=== PATIENT | female | born 1970 | race Caucasian/White ===

== ENCOUNTER 2018-09-19 14:50 | Inpatient (IN) ==
[2018-09-19] MEDS ORDERED: NS 1,000 ML IV PRN (15:12)
--- NOTE | 2018-09-19 15:38 | Diag Imaging Result Doc PS360 ---
EXAM: CHEST-2 VIEWS 09/19/2018 HISTORY: cva TECHNIQUE: PA and lateral chest COMMENT: There are calcified nodes in the left hilum. There is no evidence of acute cardiac or pulmonary disease. There are no previous studies available for comparison. IMPRESSION: No evidence of acute disease. Electronically signed by J Luis Phan 09/19/2018 3:36 PM
--- NOTE | 2018-09-19 15:53 | Diag Imaging Result Doc PS360 ---
EXAM: CT HEAD W/O CONTRAST 09/19/2018 HISTORY: r/o cva TECHNIQUE: This exam was performed using automated exposure control, adjustment of mA or kV according to patient size, and/or use of iterative reconstruction technique. COMMENT: There are subcortical white matter lucencies bilaterally. There is cortical encephalomalacia in the right parietal lobe. There is abnormal lucency with some mass effect centered around the anterior limb of the internal capsule and caudate nucleus on the left. There is encephalomalacia in the right caudate nucleus. There is opacification of the posterior right ethmoid air cells. The calvarium is intact. There are no previous studies available for comparison. IMPRESSION: Chronic ischemic changes with possible subacute infarction in the basal ganglia and internal capsule region on the left. The findings were discussed with Armaan Segovia MD at 09/19/2018 3:51 PM. Electronically signed by J Luis Phan 09/19/2018 3:51 PM
[2018-09-19 16:33] LABS: BASO# 0.04 X1000 (0.0-0.2); BASO% 0.3 % (0.0-0.8); EOS# 0.24 X1000 (0.0-0.7); HEMATOCRIT 43.8 % (37.0-47.0); HEMOGLOBIN 15.2 g/dL (12.0-16.0); IMM GRAN# 0.02 X1000 (0.0-0.04); IMM GRAN% 0.2 % (0.0-0.5); LYMPH# 2.01 X1000 (1.2-3.4); LYMPH% 17.2 % (20.5-51.1); MCH 31.8 PG (27-31); MCHC 34.7 g/dL (33-37); MCV 91.6 FL (81-99); MONO# 0.82 X1000 (0.11-0.59); MPV 10.1 FL (7.4-10.4); NEUT# 8.58 X1000 (1.4-6.5); NEUT% 73.3 % (42.2-75.2); PLT 251 X1000 (130-400); RBC 4.78 XMIL (4.2-5.4); RDW 13.2 % (11.5-14.5); WBC 11.71 X1000 (4.8-10.8)
[2018-09-19 16:58] LABS: INR 0.91; PROTIME 12.7 Seconds (11.0-16.0)
[2018-09-19 16:59] LABS: PTT 23.7 Seconds (22.3-41.8)
[2018-09-19 17:02] LABS: AGAP 13; ALBUMIN 4.7 g/dL (3.5-5.0); ALKALINE PHOSPHATASE 96 U/L (32-104); BUN 9 mg/dL (8-22); CALCIUM 10.2 mg/dL (8.8-10.2); CHLORIDE 103 mmol/L (98-107); COSMO 281; CREATININE 0.7 mg/dL (0.5-0.9); ESTIMATED GFR > 60; GLUCOSE 116 mg/dL (70-104); GOT 16 U/L (10-30); GPT 11 U/L (10-36); POTASSIUM 4.3 mmol/L (3.5-5.1); SODIUM 141 mmol/L (136-145); TCO2 25 mmol/L (25-35); TOTAL PROTEIN 7.2 g/dL (6.3-8.3)
--- NOTE | 2018-09-19 18:17 | PROVIDER DOCUMENTATION ---
This chart was entered by Karla Schneider Scribe, acting as scribe for Armaan Segovia MD. HPI-Neurological Disorder - General Chief Complaint: Altered Mental Status Stated Complaint: STROKE SX Time Seen by Provider: 09/19/18 16:08 Source: patient, family Allergies/Adverse Reactions: Patient Allergies Allergy/AdvReac Type Severity Reaction Status Date / Time No Known Allergies Allergy Verified 09/04/16 07:37 Home Medications: Home Medication List Medication Instructions Recorded Confirmed Last Taken Type NK [No Home Medications] 09/19/18 09/19/18 Unknown History - History of Present Illness-Neuro Nature of Presenting Problem: 48 year old female presents to the ER with AMS and right sided weakness with unknown start time. Last known normal time was 2 days ago when her left for work. states she began slurring her words and not making sense when talking yesterday afternoon. Pt has right side facial droop and right sided arm weakness. Onset/Duration: reports: unsure Timing: reports: still present Context: reports: none Character of Altered Mental Status: reports: confused, trouble concentrating Character of Deficits: reports: new weakness, impaired speech New weakness or altered sensation location:: reports: right facial Cognitive Baseline: alert but confused Gait Baseline: walks without assistance Associated Symptoms: reports: dizziness, weakness Review of Systems - Adult - REVIEW OF SYSTEMS - ADULT Constitutional: denies: chills, fever Respiratory: denies: cough, shortness of breath, wheezing Neurological: reports: dizziness/vertigo, slurred speech. denies: headache/migraines Past History - Adult - PAST MEDICAL HISTORY-ADULT Review of Records: reports: Nursing Assessment Review, Medications Reviewed Psychiatric: reports: anxiety - IMMUNIZATION STATUS Childhood Immunizations: See Nurse Assessment Flu Vaccine: See Nurse Assessment - SOCIAL HISTORY Smoking: cigarettes Provider spent 3-5 mins advising pt. on dangers of tobacco.: Discussed manners to quit use, and f/u contacts for add'l counseling. 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8 MCV 91.6 MCH 31.8 H MCHC 34.7 RDW Std Deviation 13.2 Plt Count 251 MPV 10.1 Immature Gran % (Auto) 0.2 Neut % (Auto) 73.3 Lymph % (Auto) 17.2 L [place] % (Auto) 7.0 Eos % (Auto) 2.0 Baso % (Auto) 0.3 Immature Gran # (Auto) 0.02 Neut # (Auto) 8.58 H Lymph # (Auto) 2.01 [place] # (Auto) 0.82 H Eos # (Auto) 0.24 Baso # (Auto) 0.04 PT INR PTT (Actin FS) Sodium 141 Potassium 4.3 Chloride 103 Carbon Dioxide 25 Anion Gap 13 BUN 9 Creatinine 0.7 Estimated GFR/1.73 m2 > 60 BUN/Creatinine Ratio 13 Glucose 116 H Calculated Osmolality 281 Calcium 10.2 Total Bilirubin 0.20 AST 16 ALT 11 Alkaline Phosphatase 96 Troponin T < 0.010 Total Protein 7.2 Albumin 4.7 Globulin 3.0 Albumin/Globulin Ratio 2.0 09/19/18 16:25 WBC RBC Hgb Hct MCV MCH MCHC RDW Std Deviation Plt Count MPV Immature Gran % (Auto) Neut % (Auto) Lymph % (Auto) [place] % (Auto) Eos % (Auto) Baso % (Auto) Immature Gran # (Auto) Neut # (Auto) Lymph # (Auto) [place] # (Auto) Eos # (Auto) Baso # (Auto) PT 12.7 INR 0.91 PTT (Actin FS) 23.7 Sodium Potassium Chloride Carbon Dioxide Anion Gap BUN Creatinine Estimated GFR/1.73 m2 BUN/Creatinine Ratio Glucose Calculated Osmolality Calcium Total Bilirubin AST ALT Alkaline Phosphatase Troponin T Total Protein Albumin Globulin Albumin/Globulin Ratio Orders Category Date Time Status Cardiac Monitoring DIRECTED Care 09/19/18 15:12 Active Finger Stick Blood Sugar (ED) DIRECTED Care 09/19/18 15:12 Active Oxygen Therapy- ED Nursing DIRECTED Care 09/19/18 15:12 Active Saline Loc NOW Care 09/19/18 15:12 Active CHEST-2 VIEWS [RAD] Stat Exams 09/19/18 15:[address] HEAD W/O CONTRAST [CT] Stat Exams 09/19/18 15:12 Completed CBC WITH ELECTRONIC DIFF [HEME] Stat Lab 09/19/18 16:25 Completed COMPREHENSIVE METABOLIC PANEL [CHEM] Stat Lab 09/19/18 16:25 Completed PROTIME WITH INR [COAG] Stat Lab 09/19/18 16:25 Completed PTT [COAG] Stat Lab 09/19/18 16:25 Completed TROPONIN T Stat Lab 09/19/18 16:[address] W/POSS RFLX CULT [URINALYSIS] Stat Lab 09/19/18 15:12 Uncollected URINE DRUG SCREEN PL Stat Lab 09/19/18 15:12 Uncollected 0.9% Sodium Chloride Inj [Ns] 1,000 ml Med 09/19/18 15:12 Active IV Wide Open mls/hr EKG [EKG] Stat Ther 09/19/18 15:12 Ordered Transfer/Admit Order [TRANSFER] Routine Transfer 09/19/18 18:12 Ordered Result Diagrams: 09/19/18 16:25 09/19/18 16:25 - EKG 1 Time of EKG reading by physician:: 17:08 EKG Read and Signed by:: Armaan Segovia EKG Interpretation (*Must complete 3 of following elements*): Normal Rate: 74 Rhythm: normal sinus rhythm Smoaks: normal QRS: normal - XRAY 1 XRAY Study: Chest Impression: Normal, See EMR Report (EXAM: CHEST-2 VIEWS 09/19/2018 HISTORY: cva TECHNIQUE: PA and lateral chest COMMENT: There are calcified nodes in the left hilum. There is no evidence of acute cardiac or pulmonary disease. There are no previous studies available for comparison. IMPRESSION: No evidence of acute disease) XRAY Interpretation: per radiologist - CT/MRI 1 CT Study: Head Impression: Abnormal, See EMR Report (EXAM: CT HEAD W/O CONTRAST 09/19/2018 HISTORY: r/o cva TECHNIQUE: This exam was performed using automated exposure control, adjustment of mA or kV according to patient size, and/or use of iterative reconstruction technique. COMMENT: There are subcortical white matter lucencies bilaterally. There is cortical encephalomalacia in the right parietal lobe. There is abnormal lucency with some mass effect centered around the anterior limb of the internal capsule and caudate nucleus on the left. There is encephalomalacia in the right caudate nucleus. There is opacification of the posterior right ethmoid air cells. The calvarium is intact. There are no previous studies available for comparison. IMPRESSION: Chronic ischemic changes with possible subacute infarction in the basal ganglia and internal capsule region on the left. The findings were discussed with Armaan Segovia MD at 09/19/2018 3:51 PM.) CT Results: per radiologist Departure - Departure Date of Disposition Decision: 09/19/18 Time of Disposition Decision: 18:03 DIAGNOSIS: CVA (cerebral vascular accident) Disposition: ADMITTED INPATIENT 09 Certified Medical Emergency: Emergent Condition: Stable Referrals and Follow-Ups: None,PCP [Primary Care Provider] - - Critical Care Note This patient required my direct & personal management of CC.: Yes Total Time (mins): 30 Critical Care Statement: This patient required my direct personal management to treat or rule out processes, the absence of which, could potentiallly result in sudden, clinically significant life or limb threatening deterioration. Attestation - Physician/ MACK Attestation Patient care was provided by Advanced Practice Provider:: No The physician spent face to face time with patient:: Yes Advanced Practice Provider documentation review:: Supervising physician onsite and consulted in the evaluation and care of this patient. The physician did have a face to face encounter with the patient. - NIH Stroke Scale Level of Consciousness: 0-Alert Best Gaze (horizontal eye movement): 0-Normal Visual (use finger movement, counting or visual threat): 0-No Visual Loss Facial Palsy (show teeth or raise eyebrows & close eyes tght: 1-Minor Paralysis Motor Function-left arm: 0-Normal Motor Function-right arm: 0-Normal Motor Function-left le-Normal Motor Function-right le-Normal Limb Ataxia([id number], or heel to marks): 0-No Ataxia Best Language(name item/read sentence.Ex-Down to Earth): 1-Mild to Moderate Aphasia Dysarthria(Pt read words or say words Ex.Mama,Tip-Top,Thanks: 1-Mild-Mod Slurring Words Extinction and Inattention: 0-Normal This chart was documented by the indicated scribe, (Karla Schneider, Scribe) and accurately reflects the services I performed and decisions made by me, Armaan Segovia MD, as attested by the provider's signature.
--- NOTE | 2018-09-19 18:34 | EKG Report ---
Test Performed on : 09/19/2018 4:33:48 PM Test Reason : possible cva Blood Pressure : / mmHG Vent. Rate : 074 BPM Atrial Rate : 074 BPM P-R Int : 158 ms QRS Dur : 078 ms QT Int : 394 ms P-R-T Axes : 053 061 058 degrees QTc Int : 437 ms Normal sinus rhythm. Normal ECG No previous ECGs available Unconfirmed Result
[2018-09-19] MEDS ORDERED: NS 1,000 ML IV SCH (18:45)
[2018-09-19] MEDS ORDERED: ASPIRIN PR ONE (18:45)
[2018-09-19] MEDS ORDERED: SODIUM CHLORIDE 0.9% INJ SCH (18:45)
--- NOTE | 2018-09-19 18:57 | HISTORY AND PHYSICAL ---
ADDENDUM: Patient seen and examined by myself. Full note dictated and discussed with nurse practitioner. Patient presented to the ER with confusion, disorientation. The notes that he had seen her last night and she seems confused a little bit. He then went to bed and went to work this morning. Upon getting home tonight she was gently confused, speech was soft. She had some drooping on her face and therefore he came to the ER. CT shows subacute infarct, no mass effect. On exam she does talk at times and sometimes just simply stares at you instead of answering a question. We are going to admit her to the hospital, transfer her to [facility], check an MRI, MRA in the a.m. as well as carotid Doppler, will ask Neurology to see her due to her age, will allow permissive hypertension. Discussed with the the importance of her stopping smoking. cc: Brock Infante MD
[2018-09-19] MEDS ORDERED: M.V.I.-12 10 ML, FOLIC ACID 1 MG, MAGNESIUM SULFATE 1 GM, THIAMINE 100 MG in NS 1,000 ML IV SCH (19:00)
[2018-09-19] MEDS ORDERED: PROTONIX IV SCH (19:00)
--- NOTE | 2018-09-19 19:06 | HISTORY AND PHYSICAL ---
CHIEF COMPLAINT: Right-sided weakness and right-sided facial droop. HISTORY OF PRESENT ILLNESS: This is a 48-year-old female with a history of cervical cancer, a CVA in 1993, and tobacco use and abuse as well as alcohol use daily. She presents after being found by her altered. The patient has difficulty with words, and most of the history is from the and the ER chart. The stated that he went to work 2 days ago in the morning, and she was at her normal. He did notice that she started slurring her words yesterday afternoon and did not make much sense when she talked. Then today, there is a right-sided facial droop with right arm weakness. He did state that she was drinking her coffee today, and he noted that she had some trouble swallowing and she had to hold her coffee cup with 2 hands. PAST MEDICAL HISTORY: Cervical cancer. CVA in 1993. PAST SURGICAL HISTORY: Hysterectomy. SOCIAL HISTORY: She smokes about a pack and half to 2 packs of cigarettes a day. She drinks daily. ALLERGIES: No known drug allergies. HOME MEDICATIONS: The reports an estrogen supplement. REVIEW OF SYSTEMS: Unable to obtain from the patient. The states that she has voiced no complaints. He has not noted that she has been ill until she started having these symptoms yesterday afternoon. PHYSICAL EXAMINATION: GENERAL: This is a 48-year-old female who is lying in the bed in the ER in no distress. VITAL SIGNS: Blood pressure is 132/80 with heart rate of 73, respirations are 16, temperature is 98.2 degrees with room air saturations 96%. EYES: Pupils are equal, round, and react to light. EOMs are intact. Sclerae are anicteric. HEENT: Head is normocephalic, atraumatic. Mucous membranes are moist. NECK: Supple with trachea midline. CARDIOVASCULAR: Regular rate and rhythm. S1 and S2 appreciated. She has no lower extremity edema. Peripheral pulses are palpable x4 extremities. Calves are nontender. PULMONARY: Breath sounds are clear with no increased work of breathing noted GASTROINTESTINAL: Abdomen is soft, nontender, nondistended. Bowel sounds in all 4 quadrants. NEUROLOGIC: She is alert. She is slow to respond. She does follow some commands. Forehead is spared. She does have a right corner of her mouth facial droop, flat. She has no nasal flaring to the right naris. Shoulder shrug to the right is less than the left. She has a right plantar drift. Muscle strength and shellfish sorter to the left arm are 5/5. To the right they are about 2/5 to 3/5. The stated that she had trouble swallowing. She is handling her secretions while in the ER. Muscle strength to the left lower extremity is 5/5 and to the right is about 3/5. Finger-to- nose on the left is 3/3. She did not attempt on the right. She just stated no. Speech is clear some words and slurred at times. She does have trouble finding words. LABORATORY DATA: WBC is 11.7 with hemoglobin 15, hematocrit 43.8, platelets of 251,000. Sodium 141, potassium 4.3, BUN 9, creatinine 0.7 with a glucose of 116. CT of the head revealed chronic ischemic changes with possible subacute infarction in the basal ganglia and internal capsule region on the left. Chest x-ray revealed no evidence of acute disease. EKG revealed sinus rhythm with a rate of 74. ASSESSMENT AND PLAN: 1. Cerebrovascular accident. 2. Tobacco use and abuse. 3. Daily alcohol use and abuse. PLAN: The patient will be transferred to [facility]. She will be admitted and placed on telemetry with neuro checks per stroke protocol. We will obtain a urine drug screen as well as urinalysis. Get a stat blood alcohol. She was given a liter of fluid. We will continue with IV hydration, giving saline at 125 an hour. We will give Protonix for PPI. We will allow for permissive hypertension, treating blood pressure with hydralazine for systolic pressure greater than 180. We will given aspirin. We will consult Physical Therapy. Further treatments pending hospital course. Plan was discussed with Dr. Fortino Infante. Dictated by NAZANIN Kelley for Brock Infante MD cc: NAZANIN Kelley MD Alexis R. Penot, MD
[2018-09-19] MEDS ORDERED: APRESOLINE IV PRN (20:03)
[2018-09-19] MEDS ORDERED: NEXIUM IV SCH (21:15)
[2018-09-19] MEDS: SODIUM CHLORIDE 0.9% INJ SCH (21:33)
[2018-09-19] MEDS: NS 1,000 ML IV SCH (21:33)
[2018-09-20] MEDS: NS 1,000 ML IV SCH ×2 (05:58→18:48)
[2018-09-20] MEDS: M.V.I.-12 10 ML, FOLIC ACID 1 MG, MAGNESIUM SULFATE 1 GM, THIAMINE 100 MG in NS 1,000 ML IV SCH (09:15)
--- NOTE | 2018-09-20 09:25 | Diag Imaging Result Doc PS360 ---
MRI BRAIN W/WO CONTRAST - 09/20/2018 INDICATION: cva COMPARISON: Head CT 09/19/2018 FINDINGS: There is widespread restricted diffusion of the left cerebral hemisphere. The most heavily involved area is the caudate head, internal capsule, and although striate on the left side. There is also multifocal patchy hyperintense signal of the cortex mainly involving the parietal lobe, but also to a minimal extent at the frontal and temporal lobes. There is also significant involvement in the posterior parietal lobe deep white matter. No mass effect or intracranial hemorrhage. There is otherwise stable extensive chronic microvascular disease of the cerebral white matter, and stable old strokes namely in the right parietal lobe. IMPRESSION: Extensive acute strokes in the left basal ganglia and left cerebral hemisphere. These involve the thalamostriate and middle cerebral artery territories respectively. Electronically signed by Anthony Sauceda 09/20/2018 9:23 AM
--- NOTE | 2018-09-20 09:33 | Diag Imaging Result Doc PS360 ---
MRA BRAIN W/CONTRAST - 09/20/2018 INDICATION: cva TECHNIQUE: Noncontrast [id number] technique was used COMPARISON: None FINDINGS: There is moderate patient motion artifact. There is artifactual nonvisualization of most of the right middle cerebral artery for some reason. On the left side, the intracranial internal carotid artery is patent. The anterior cerebral artery is patent. There is moderate irregularity with narrowing and stenosis of the proximal M1 segment of the left middle cerebral artery. There is about 60% narrowing here. The posterior cerebral arteries are patent. The vertebral and basilar arteries are patent. IMPRESSION: Moderate irregularity and narrowing of the proximal M1 segment of the left middle cerebral artery. Electronically signed by Anthony Sauceda 09/20/2018 9:30 AM
[2018-09-20] MEDS ORDERED: ATIVAN IV PRN (09:54)
[2018-09-20] MEDS: ASPIRIN EC PO SCH (11:20)
[2018-09-20] MEDS ORDERED: NICODERM PATCH TD PRN (15:16)
--- NOTE | 2018-09-20 15:58 | ECHO REPORT ---
ORDER DATE: 09/20/2018 INTERPRETING PHYSICIAN: Dr. Ray Hale. REQUESTING PHYSICIAN: Mariano White MD. CLINICAL INDICATIONS: A 48-year-old female with a stroke. M-MODE MEASUREMENTS: Right ventricle: cm. Left ventricle end diastole: 4.6 cm. Left ventricle end systole: 2.2 cm. Posterior wall: 0.8 cm. Interventricular septum: 0.8 cm. Left atrium: 3.0 cm. Aortic root: 3.5 cm. SUMMARY OF 2-DIMENSIONAL IMAGIN. The left ventricle is normal in size and function. Systolic function is normal. Ejection fraction estimated at 77%. No wall motion abnormality is noted. 2. Ventricular volumes are normal. 3. The aortic valve is normal. Color flow mapping is unremarkable. 4. The mitral valve is normal. Color flow mapping indicates very mild degree of mitral regurgitation. 5. Pulse wave Doppler of mitral inflow shows normal E/A ratio. 6. Tissue Doppler of septal and lateral mitral annulus averages 12 cm per second. 7. Pulmonary venous flow is normal. 8. There is normal diastolic function. 9. Pulmonary valve is normal. Color flow mapping is unremarkable. 10.Tricuspid valve is normal. Color flow mapping indicates mild tricuspid regurgitation. 11.Inferior vena cava is not dilated. 12.Pulmonary pressure is estimated at 27 mmHg. 13.There is no pericardial effusion, mass or thrombus. cc: MD Mariano Mota MD
--- NOTE | 2018-09-20 16:14 | PROGRESS NOTE ---
DATE: 09/20/2018 SUBJECTIVE: Patient has no major complaints. OBJECTIVE: Blood pressure is 150/78, heart rate 65, respiratory 15, temperature 99.1 degrees.Cardiovascular: Regular rate and rhythm. Pulmonary: Bilateral breath sounds, clear to auscultation. GI: Soft, nontender, nondistended. Bowel sounds are positive. PROBLEM LIST: 1. Left basal ganglia and cerebral hemisphere stroke. She does have some right-sided weakness but her aphasia is much better. Her weakness is better. We will continue aspirin, Lipitor, permissive hypertension. I have gotten a neurological consult because she is has a fairly extensive stroke and she has a pretty young age. I just want to make sure we are covering all her bases. 2. Hypertension appears to be stable. 3. Alcohol abuse, but no evidence currently of withdrawal. We will continue to monitor. She is on a banana bag. DISPOSITION: Anticipate she is probably going to go home. She is recovering already. Encouraged her about tobacco and alcohol cessation. cc: Mariano White MD
--- NOTE | 2018-09-20 18:19 | CONSULTATION ---
DATE OF CONSULTATION: 09/20/2018 Ms Grant is 48 years old and it looks like she has had a stroke. History from the patient and attentive at the bedside and from review of the hospital admission notes is that she had trouble expressing herself with speech 2 days ago. The next day, yesterday, noticed that she had difficulty using her right side and right face was drooped. She was brought to the hospital, evaluated and admitted. reports she seems to be about the same today as yesterday. In retrospect, reports being told by co-worker that she seemed not herself at work 4 days ago, but we do not have a more precise report. Also, 9 days ago at a libertarian for a family member she seemed more withdrawn than usual. She had not complained of headache. There is no history of head injury. There is reported to be possible prior stroke history when she was in her 20s but we do not have details. She is not able to report anything specific about that now. Risk factors include cigarette smoking. She has not had diagnosed hypertension, diabetes mellitus, dyslipidemia. She was taking no medications regularly. Past history is also remarkable for cervical cancer and there is reported to be history of significant ethanol use. Workup here includes lab showing WBC 11,710. Nothing remarkable on chemistry profile. She has been afebrile. Systolic blood pressures were initially 120s, later 140s-150s. Initial heart rate was 95, later 70s-80s. Brain MRI done with and without contrast shows acute left hemisphere infarction, mostly subcortical, multiple small areas involved. Brain MRA shows narrowing of the left proximal MCA but no occlusion. From discussion with patient and , I believe that she may have had carotid ultrasound and echocardiogram but I do not have those reports now. On exam, Ms. Grant is awake, alert, attentive. She seems appropriate. Speech is slightly dysarthric, but easily understood. She had trouble naming objects and parts of objects. She could not perform tasks requiring right/left distinction or digit distinction. She followed simple written and spoken commands consistently. I did not test her handwriting. She did well with bedside testing of repeating, including pronouns. Head and neck are unremarkable. Visual lambert are full tested grossly by confrontational finger counting. Extraocular movements are full. Facial motility is diminished on the right in an upper motor neuron pattern. She reports diminished pinprick appreciation over the right face inconsistently. Tongue protrudes slightly to the right. Gag is intact. Palate is midline. She can hear. Shoulder shrug is good bilaterally. Strength is normal in the left limbs. I can overcome the right deltoid 4/5, wrist extensor 4+/5, supervisor vendor quality 4+/5, iliopsoas 4/5, anterior tibialis 4+/5. Tone is increased in the right arm. She did rapid alternating movements better with the right hand than the left. She did well with finger-to- nose testing bilaterally. She reports equal pinprick appreciation over the left and right limbs. Her responses on proprioception testing were inconsistent but she generally reported better proprioception in the right great toe than the left. I did not test her gait. IMPRESSION: Right hemiparesis and dysphasia. This is consistent with dominant left hemisphere syndrome. History is consistent with sudden onset a few days ago, but there is also some history suggesting this might have been a staggering incremental event. We need to see the echocardiogram report. In light of her young age, if TTE is unremarkable, I would consider transesophageal echocardiogram. Depending on those reports, would consider checking coagulation labs. I strongly encouraged her to quit smoking cigarettes. At discharge, she may need antihypertensive medicine and at least temporary course with a statin. I do not see lipid profile reported in old records and lipid profile is ordered for tomorrow morning. Would continue aspirin for now. Thanks for asking Neurology to see Ms. Grant. cc: MD EVONNE Fernandez III
[2018-09-20] MEDS: LIPITOR PO SCH (21:03)
[2018-09-20] MEDS: SODIUM CHLORIDE 0.9% INJ SCH (21:04)
[2018-09-21] MEDS: LOVENOX SUBQ SCH (06:30)
[2018-09-21] MEDS: PRILOSEC PO SCH (06:30)
[2018-09-21 06:54] LABS: BASO# 0.06 X1000 (0.0-0.2); BASO% 0.6 % (0.0-0.8); EOS# 0.37 X1000 (0.0-0.7); EOS% 3.5 % (0.0-10.0); HEMATOCRIT 44.9 % (37.0-47.0); HEMOGLOBIN 14.7 g/dL (12.0-16.0); IMM GRAN# 0.02 X1000 (0.0-0.04); IMM GRAN% 0.2 % (0.0-0.5); LYMPH# 2.39 X1000 (1.2-3.4); LYMPH% 22.5 % (20.5-51.1); MCH 31.4 PG (27-31); MCHC 32.7 g/dL (33-37); MCV 95.9 FL (81-99); MONO% 6.6 % (1.7-9.3); MPV 10.4 FL (7.4-10.4); NEUT% 66.6 % (42.2-75.2); PLT 208 X1000 (130-400); RBC 4.68 XMIL (4.2-5.4); RDW 13.3 % (11.5-14.5); WBC 10.64 X1000 (4.8-10.8)
[2018-09-21 07:24] LABS: AGAP 15; BUN 6 mg/dL (8-22); CALCIUM 8.8 mg/dL (8.8-10.2); CHLORIDE 110 mmol/L (98-107); CHOLESTEROL 162 mg/dL (0-200); COSMO 279; CREATININE 0.6 mg/dL (0.5-0.9); ESTIMATED GFR > 60; GLUCOSE 95 mg/dL (70-104); HDL 67 mg/dL (45-65); LDL 80 mg/dL; POTASSIUM 4.1 mmol/L (3.5-5.1); SODIUM 141 mmol/L (136-145); TCO2 16 mmol/L (25-35); TRIGLYCERIDES 77 mg/dL (35-135); VLDL 15 mg/dL
--- NOTE | 2018-09-21 11:05 | Carotid Study ---
DATE: 09/20/2018 REQUESTING PHYSICIAN: Dr. White. HEADING SAW OPERATOR: Rach. INDICATIONS: TIA. EQUIPMENT: GE Vivid E9 ultrasound system with a 9 L-D transducer. FINDINGS: Full diagram of ultrasound images can be seen in patient's medical record and scanned into the chart. The peak systolic velocity noted in internal system is 117 on the right and 116 on the left. The left calculated internal common ratio on the right 1.48 and left 1.38. Calculated stenosis on the right is likely 40% to 59%, likely closer to the 40%. There appears to be atherosclerosis which is producing a moderate stenosis noted bilaterally. Both vertebral arteries were antegrade flow. INTERPRETATION: Stenosis of 40% to 59% noted bilaterally, closer to the 40% range. The patient's vessels are tortuous per the traffic technician's note, which makes interpretation difficult. Given these findings, I would recommend continue monitoring. cc: MD Mariano Fajardo MD
--- NOTE | 2018-09-21 13:38 | PROGRESS NOTE ---
DATE: 09/21/2018 Ms. Grant reports she is feeling better, finding her words a little bit better. On bedside testing, she still has trouble with right/left distinction and with digit distinction. She could not name the President. She did name the hospital. She found her words more consistently and was able to carry on conversation better today than yesterday. Workup includes carotid ultrasound done yesterday showing moderate stenosis and tortuous vessels bilaterally. We reviewed the brain MRI and brain MRA findings. Echocardiogram showed no source of embolus. Systolic blood pressures have ranged 110s-160s in the last 24 hours. She continues afebrile. Lipid profile reported today shows total cholesterol 162, LDL 80, VLDL calculated 15, HDL 67, triglycerides 77. I will order coagulopathy lab profile for workup of stroke in young adult. Would continue aspirin and statin, continue following blood pressure and blood sugar. Also, in light of her young age, could consider elective transesophageal echocardiogram. I encouraged her to quit smoking. Thanks for asking Neurology to see Ms. Grant. cc: MD EVONNE Fernandez III
--- NOTE | 2018-09-21 14:41 | ECHO REPORT ---
ORDER DATE: 09/21/2018 INTERPRETING PHYSICIAN: Dr. Sheldon Quiroga. SUMMARY OF THE 2-DIMENSIONAL IMAGIN. This is a limited 2D echocardiogram to rule out patent foramen ovale. 2. 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 3. Saline contrast study was negative for patent foramen ovale. 4. Please see full echocardiogram dictated earlier. 5. Aortic valve leaflets were trileaflet. 6. Mitral valve was normal. 7. There is no pericardial effusion. cc: MD Ray Acevedo MD
--- NOTE | 2018-09-21 14:45 | CARDIOLOGY CONSULTATION ---
DATE: 09/21/2018 REQUESTING PHYSICIAN: Hospitalist Service. REASON FOR CONSULTATION: Possible need for ZAC. HISTORY: Ms. Grant is a 48-year-old female who presented to the hospital, brought by the family, on September 19 with a complaint of sudden onset of difficulty with her speech. 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 On September 17, she did not go to work. On September 18, Thursday morning, found her sort of slumped in the living room with her head tilted backwards. He did not think much of it and at the end of the day on Thursday evening, September 18, the patient appeared to have a little bit of garbled speech, but she denied having any complaints. On September 19, the patient was evidently unable to communicate and the immediately at that time reacted and thought that she could be having a stroke. They brought her to the emergency room department and they did a head CT that shows chronic ischemic changes with possible subacute infarction in the basal ganglia and internal capsule region on the left. The patient's initial blood pressure at the time of encounter in the ER was 126/85, and the highest pressure recorded since this admission was today September 21, 161/79 at 11:57 in the morning. The patient has not complained of any headache or chest pain. She has received an echocardiogram which I read yesterday and the echocardiogram in my professional and expert opinion is really quite unremarkable. I do not see indication of any chamber dilatation or any valvular disease. A brain MRA was ordered that shows moderate irregularity and narrowing of the proximal M1 segment of the left middle cerebral artery. However, there is artifactual nonvisualization of most of the right middle cerebral artery, making this study less than optimal. In addition, they reported that there is some moderate stenosis of the carotid arteries bilaterally in the range of 40 to 59 percent. The patient at this time is not complaining of any symptoms or discomfort. PAST MEDICAL HISTORY: Her past history is really negative other than on further questioning, family member said that she may have suffered a stroke in 1993. There is a question of cervical cancer and a previous hysterectomy. MEDICATIONS: The patient does not see any doctor on a regular basis and is not taking any medication on regular basis. SOCIAL HISTORY: She has been to her for the past 13 years. She has 3 grownup children. She smokes about a pack of cigarettes a day and she drinks about 6 to 7 beers every day. ALLERGIES: She does not have any reported allergies. FAMILY HISTORY: Really noncontributory. 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 The patient has no complaints that the can relate to me. The patient at this time is aphasic and cannot really communicate well. PHYSICAL EXAMINATION: Vital signs: Blood pressure is 161/79, temperature 98.9 degrees, pulse 63, respirations 15. General: She is awake, alert, oriented, in no distress. HEENT: Unremarkable. Chest: Clear to auscultation and percussion. Heart: Sounds regular and rhythmic. No gallop or murmur. Abdomen: Nontender. Extremities: Showed good pulses. No peripheral edema. Neurological: Follows commands within certain range. She has expressive aphasia. She moves 4 extremities. LABORATORY DATA: Triglycerides 77, cholesterol 162, LDL 80, HDL 67. IMPRESSION: 1. Patient who has suffered a stroke. The etiology of it is unclear. Dr. Traore from Neurology is considering a transesophageal echocardiogram. 2. Tobacco user. 3. Alcohol use. 4. Hypertension. RECOMMENDATION: At this time, I would suggest to do a CT of the cerebral circulation prior to proceeding with ZAC since the brain MRA was suboptimal. I will consider doing the ZAC when the patient is really more able to cooperate. At this time, she is somewhat aphasic and startled by the fact that she does not really fully understand questions and her answers are equivocal due to the expressive aphasia. At any rate, one thing that I may want to do is consider doing a bubble study with agitated saline to make sure that there is no patent foramen ovale. cc: Ray Hale MD
[2018-09-21] MEDS: NS 1,000 ML IV SCH (15:40)
[2018-09-21] MEDS: M.V.I.-12 10 ML, FOLIC ACID 1 MG, MAGNESIUM SULFATE 1 GM, THIAMINE 100 MG in NS 1,000 ML IV SCH (15:40)
--- NOTE | 2018-09-21 15:41 | Diag Imaging Result Doc PS360 ---
CT ANGIOGRAM HEAD/NECK - 09/21/2018 INDICATION: CVA left side Aphasia TECHNIQUE: Axial CT images were obtained after administering intravenous contrast. Three-dimensional angiographic images were generated. COMPARISON: MR angiogram 09/20/2018 FINDINGS: Normal aortic arch and great vessel origins. Soft tissues are normal. The carotid artery systems are patent bilaterally. There is no aneurysm or stenosis. There is no substantial atherosclerotic plaque. The vertebral arteries are patent. The left vertebral artery is dominant. Again, no significant plaque buildup. The right intracranial internal carotid artery demonstrates some minimal calcified plaque at the cavernous sinus. There is mild stenosis here, about 30% narrowing. The supraclinoid internal carotid artery is patent. As on the MR angiogram, the M1 segment of the right middle cerebral artery is extremely narrow, almost to the point of nonvisualization. This measures about 1 mm. The right anterior cerebral artery is patent. On the left side, there is heavy plaque buildup in the cavernous and supraclinoid internal carotid artery. This causes moderate stenosis of about 50% at the cavernous portion, and severe stenosis of about 70% narrowing at the anterior clinoid process. There is moderate atherosclerotic narrowing of the proximal M1 segment as was seen on the MRA, with about 60% narrowing. This is due to focal plaque buildup. The anterior cerebral artery are patent. The more distal branches of the middle cerebral artery are patent. The vertebral basilar system is patent. No significant plaque buildup. The posterior cerebral arteries are patent. The major cerebellar arteries are patent. IMPRESSION: Confirmation of the MR angiogram. Extremely narrow M1 segment of the right middle cerebral artery. Bilateral intracranial internal carotid artery plaque buildup causing stenosis, worse on the left side. There is also moderate to severe stenosis at the proximal M1 segment of the left middle cerebral artery. This exam was performed using automated exposure control, adjustment of mA or kV according to patient size, and/or use of iterative reconstruction technique Electronically signed by Anthony Sauceda 09/21/2018 3:39 PM
[2018-09-21] MEDS: ASPIRIN EC PO SCH (16:08)
--- NOTE | 2018-09-21 17:45 | PROGRESS NOTE ---
DATE: 09/21/2018 SUBJECTIVE: The patient has no major complaints. OBJECTIVE: Blood pressure 125/84, heart rate of 73, respiratory rate 14, temperature was afebrile at 98 degrees.Cardiovascular: Regular rate and rhythm. Pulmonary: Bilateral breath sounds. Clear to auscultation. Gastrointestinal: Soft, nontender, nondistended. Bowel sounds are positive. LABORATORY DATA: Her white count is 10, hemoglobin and hematocrit 14 and 44, platelets 208,000. PROBLEM LIST: Left basal ganglia and cerebral hemispheric stroke. We will continue aspirin and Lipitor and follow. Clinically she is much improved. She will likely need some outpatient therapy. At this point it is not clear. She uses tobacco and abuses alcohol. She is not particularly dyslipidemic, but it is around the time of an acute event. She does have a narrow M1 segment of the left and right middle cerebral artery, but there is no acute obstruction and I am not sure if any of this is amenable to treatment. In any case, Dr. Traore is recommending to get a ZAC and I have consulted Dr. Hale about that and he is evaluating when the patient is more able to cooperate. I do not know. She cooperated okay this afternoon. I think there is some concern since she had dysphagia of doing that right now, so we just need to make sure she does not have an intra-arterial thrombus I think before she goes home and we will go from there. Continue IV fluids and we have pursued a hypercoagulable workup. The only thing I think I am going to add is we need to add a prothrombin gene mutation and we need to add a Factor V Leiden. I appreciate Dr. Hale's and Dr. Traore's assistance. Hopefully, discharge soon. cc: Mariano White MD
[2018-09-21] MEDS: SODIUM CHLORIDE 0.9% INJ SCH (21:18)
[2018-09-21] MEDS: LIPITOR PO SCH (21:19)
[2018-09-22] MEDS: NS 1,000 ML IV SCH (02:41)
[2018-09-22] MEDS: LOVENOX SUBQ SCH (06:31)
[2018-09-22] MEDS: PRILOSEC PO SCH (06:31)
[2018-09-22 07:16] LABS: BASO# 0.03 X1000 (0.0-0.2); BASO% 0.3 % (0.0-0.8); EOS# 0.29 X1000 (0.0-0.7); HEMATOCRIT 39.6 % (37.0-47.0); HEMOGLOBIN 13.4 g/dL (12.0-16.0); LYMPH% 21.5 % (20.5-51.1); MCH 31.2 PG (27-31); MCHC 33.8 g/dL (33-37); MCV 92.3 FL (81-99); MONO# 0.69 X1000 (0.11-0.59); MONO% 7.1 % (1.7-9.3); MPV 10.7 FL (7.4-10.4); NEUT# 6.67 X1000 (1.4-6.5); NEUT% 68.1 % (42.2-75.2); PLT 204 X1000 (130-400); RBC 4.29 XMIL (4.2-5.4); WBC 9.78 X1000 (4.8-10.8)
[2018-09-22 07:35] LABS: AGAP 12; BUN 5 mg/dL (8-22); CALCIUM 8.2 mg/dL (8.8-10.2); CHLORIDE 110 mmol/L (98-107); COSMO 278; CREATININE 0.5 mg/dL (0.5-0.9); ESTIMATED GFR > 60; GLUCOSE 95 mg/dL (70-104); POTASSIUM 3.6 mmol/L (3.5-5.1); SODIUM 141 mmol/L (136-145); TCO2 19 mmol/L (25-35)
[2018-09-22] MEDS: ASPIRIN EC PO SCH (08:47)
[2018-09-22] MEDS: M.V.I.-12 10 ML, FOLIC ACID 1 MG, MAGNESIUM SULFATE 1 GM, THIAMINE 100 MG in NS 1,000 ML IV SCH (12:11)
[2018-09-22 12:18] VITALS: BP 147/56
--- NOTE | 2018-09-22 12:34 | PROGRESS NOTE ---
DATE: 09/22/2018 Ms. Grant is awake and alert. She did a little bit better with bedside language testing. She was able to come up with proper nouns a little bit better today. She still has great difficulty with commands requiring right/left distinction and digit distinction. Her workup has shown evidence of moderate intracranial stenoses bilaterally. I discussed that with her. I strongly encouraged her to continue off cigarettes and to be aggressive with management of other risk factors. I suggested she become established with a primary clinic. Depending on her clinical course and her desires, we might consider referral to [facility] outpatient stroke clinic for another opinion later, electively, not urgent. We have coagulopathy lab work reports pending now. I do not have any other suggestion. I will be glad to see her again as an outpatient, if needed. cc: Yina Traore III, MD MTDD
--- NOTE | 2018-09-23 05:00 | DISCHARGE SUMMARY ---
ADMISSION DATE: 09/19/2018 DISCHARGE DATE: 09/22/2018 ADMISSION DIAGNOSES: 1. Acute ischemic CVA related to atherosclerosis. 2. Hypertension. 3. History of alcohol dependence. 4. Expressive aphasia. 5. Tobacco abuse. DISCHARGE DIAGNOSES: 1. Acute ischemic CVA related to atherosclerosis. 2. Hypertension. 3. History of alcohol dependence. 4. Expressive aphasia. 5. Tobacco abuse. CONSULTATIONS: 1. Neurology, Dr. Traore. 2. Cardiology, Dr. Hale. HISTORY: This is a 48-year-old female presenting initially to [facility] with aphasia, slurring words, and right-sided facial droop. She was admitted, placed on IV fluids, and transferred to the main hospital for further management. Her MRI showed extensive acute strokes in the left basal ganglia and left cerebral hemisphere. They were in the territories of the middle cerebral artery. Her carotid Doppler showed 40 to 59 percent stenoses, but more in the 40% range. Her echocardiogram was unremarkable. There was no interatrial thrombus. Dr. Traore was consulted just because she had a fairly extensive stroke. This was a dominant left hemisphere stroke. We consulted Cardiology. We did a limited echo which showed no PFO, and did not feel that we required a ZAC at this point. She did answer questions appropriately. She seemed to understand. She had difficulty initiating speech, but she could answer questions. She still had limited word recall. Her CTA showed narrow M1 segment of the right middle and left middle cerebral artery, but there was no acute thrombus, and there was no clear stenosis. I discussed the CTA findings I think with Dr. Rivera. He said that there was some calcification in that middle cerebral artery, and that is most likely where she had, less likely to be an embolic stroke. She continued to improve. Dr. Traore saw the patient and felt that she was improved, and recommended that aggressive management of her other factors and her coagulopathy report was pending. As she improved, she was ambulating without difficulty. She was felt stable for discharge. She was discharged on aspirin 81 daily and Lipitor 40 daily. She will need blood pressure management long- term to be set up with PCP. We will refer her to the free clinic and to Dr. Traore for follow up. She was told to return for any acute neurological change. TIME SPENT: 32 minute discharge. cc: Mariano White MD
== END 2018-09-22 18:05 | disposition home or self-care (01) | DRG 65 ==
LOC: P.ED 14:50 → SUATTDRO 18:53 → 3N 18:53
PROVIDERS: ATTEND Internal Medicine
CPT/HCPCS: 70450; 70496; 70498; 70545; 70553; 71020; 71046; 80048; 80053; 80061; 80307; 80320; 81241; 82055; 83090; 84484; 85025; 85300; 85301; 85302; 85306; 85610; 85612; 85613; 85651; 85730; 86038; 86039; 86147; 92507; 93005; 93306; 93308; 93880; 97116; 97162; 97166; 97530; A9270; A9579; G0480; G6040; J1650; J3411; J3475; J7030; Q9967